=== PATIENT | female | born 1995 | race Caucasian/White ===

== ENCOUNTER 2017-06-15 10:13 | Emergency (ER) | payer SELFPAY ==
[2017-06-15 10:25] VITALS: BP 109/71; BMI 21.1
--- NOTE | 2017-06-15 12:32 | DR.GENAD ---
HPI - PCP Primary Care Physician: NFD - HPI Comment HPI Comment: NOT IMPROVING WITH BENADYL. NO OBVIOUS CAUSE. DENIES SOB OR THROAT DISCOMFORT. - Complaint/Symptoms Chief Complaint Doctors Comments: RASH NECK, FACE AND CHEST TIMES 2 WEEKS. ITCHING. Chief Complaint:: PATIENT STATED THAT SHE HAS A RASH ON HER FACE AND CHEST THAT HAS BEEN THERE FOR THE LAST TWO WEEKS AND IT KEEPS GETTING WORSE INSTEAD OF BETTER. - Nurses notes reviewed Nurses Notes Review: Yes - Source History Provided: Patient - Mode of Arrival Mode of Arrival: Ambulatory - Timing Onset of Chief Complaint: 06/01/17 Came on: Suddenly - Duration Duration: Constant Duration: Days - Severity Severity: Moderate PMH - PMH Past Medical History: No Past Surgical History: Yes Surgical History: Tonsillectomy - Family History History of Family Medical Conditions: Yes Family Medical History: Cancer, Coronary Artery Disease, Hypertension - Social History Does patient currently use any type of tobacco product: Yes Have you used tobacco products in the last 12 months: Yes Type of Tobacco Use: Cigarettes Does any household member use tobacco: No Alcohol Use: None Do you use any recreational Drugs:: No Lives With: Family Lives Where: Home - infectious screening In the last 2 months have you had wt loss of >10#?: NO Have you had fever, night sweats or hemotysis?: No Have you traveled outside the country in the last 6 months?: No Isolation: Standard ROS - Review of Systems Constitutional: No Symptoms Reported Eyes: No Symptoms Reported ENTM: No Symptoms Reported Respiratoy: No Symptoms Reported Cardiovascular: No Symptoms Reported Gastrointestinal/Abdominal: No Symptoms Reported Genitourinary: No Symptoms Reported Neurological: No Symptoms Reported Musculoskeletal: No Symptoms Reported Integumentary: Change in Color, Rash (CHEST, FACE AND NECK.) Hematologic/Lymphatic: No Symptoms Reported Endocrine: No Symptoms Reported PE - Vital Signs Vitals: Temperature 98.2 F Pulse Rate 96 Respiratory Rate 20 Blood Pressure 109/71 O2 Sat by Pulse Oximetry 99 - General Limitations: No Limitations General Appearance: Alert - Head Head Exam: Normal Inspection - Eyes Eye exam: Normal Appearance - ENT ENT Exam: Normal External Ear Exam External Ear Exam: Normal External Inspection TM/Canal Exam: Left Normal Nose Exam: Normal Nose Exam Mouth Exam: Normal Inspection Throat Exam: Normal Inspection - Neck Neck Exam: Normal Inspection, Trachea Midline - Respiratory Respiratory Exam: Normal Lung Sounds Bilat Respiratory Exam: Bilateral Clear to Auscultation - Cardiovascular Cardiovascular Exam: Regular Rate, Normal Rhythm, Normal Heart Sounds - Abdominal Exam Abdominal Exam: Normal Bowel Sounds, Soft. negative: Tenderness - Extremities Extremities Exam: Normal Inspection - Back Back Exam: Normal Inspection - Neurologic Neurological Exam: Alert, Oriented X3 - Psychiatric Psychiatric Exam: Normal Affect, Normal Mood - Skin Skin Exam: Rash (MACULOPAPULAR RASH NECK, FACE AND CHEST.), Erythema MDM - Differential Diagnosis Differential Diagnosis: RASH, ALLERGIC DERMATITIS Course - Treatment Treatment: SEE ORDERS - Education/Counseling Education/Counseling: Patient, Education Educated On: Diagnosis, Needs for Follow Up - Diagnosis Discharge Problem: Rash, Allergic dermatitis - Discharge Plan Disposition: HOME, SELF-CARE Condition: Stable Prescriptions: Hydroxyzine Pamoate [Vistaril] 25 mg PO TID PRN #15 cap PRN Reason: Methylprednisolone Dosepak 4Mg [MEDROL DOSEPAK (4 mg tab x 21)] 1 hannah PO ONCE # 1 hannah - Follow ups/Referrals Follow ups/Referrals: Neal Cheney [STAFF PHYSICIAN] - 2 weeks NFD,None [Primary Care Provider] - 2 days - Instructions Instructions: Rash, [place] Additional Instructions: RETURN TO ED IF WORSE.
== END 2017-06-15 12:48 | disposition home or self-care (01) ==
LOC: ER 10:36
DX: L23.9 Allergic contact dermatitis, unspecified cause (principal); R21 Rash and other nonspecific skin eruption
CPT/HCPCS: 99281; 99282